=== PATIENT | male | born 1950 | race Caucasian/White ===

== ENCOUNTER 2020-01-13 14:04 | Inpatient (IN) | payer BC ==
[~2020-01-13] VITALS: Ht 167.6 cm; Wt 118.8 kg
[~2020-01-13 14:04] MED LIST: METO-539 PO
[2020-01-13] MEDS ORDERED: ONDANSETRON HCL 4MG/2ML INJ IV STA (19:01)
[2020-01-13] MEDS ORDERED: MORPHINE SULFATE 4 MG/ML CPJ (NOT FOR IM USE) IV STA (19:01)
[2020-01-13] MEDS ORDERED: PIPERACILLIN/TAZ 3.375G PREMIX 50 ML IV ONE (19:15)
[2020-01-13] MEDS ORDERED: VANCOMYCIN 1 G PREMIX 200 ML IV ONE (19:15)
[2020-01-13 19:44] LABS: BASOPHILS % 0.8 % (0.0-2.0); EOSINOPHILS % 3.3 % (0.0-5.0); HEMATOCRIT. 36.4 % (42.0-52.0); HEMOGLOBIN. 12.1 g/dL (14.0-18.0); LYMPHOCYTES % 7.1 % (20.0-50.0); MEAN CORPUSCULAR HEMOGLOBIN 29.2 pg (28.0-32.0); MEAN CORPUSCULAR VOLUME 87.5 fL (80.0-94.0); MEAN PLATELET VOLUME 7.1 fl (7.4-10.4); MONOCYTES % 8.1 % (2.0-8.0); NEUTROPHILS % 80.7 % (40.0-76.0); PLATELET 334 x1000/uL (130-400); RED BLOOD CELL COUNT 4.16 mill/uL (4.7-6.1); RED CELL DISTRIBUTION WIDTH 14.2 % (11.6-14.6)
[2020-01-13 19:51] LABS: CHLORIDE 105 mEq/L (98-107)
[2020-01-13 19:55] LABS: INR 1.1; PARTIAL THROMBOPLASTIN TIME 35.3 sec (23.4-31.0); PROTHROMBIN TIME 11.8 sec (9.6-11.0)
[2020-01-13] MEDS ORDERED: FUROSEMIDE 100MG/10ML VIAL IV STA (20:08)
[2020-01-13 20:09] LABS: COLOR URINE YELLOW (YELLOW); KETONES URINE NEGATIVE (NEGATIVE); LEUKOCYTE ESTERASE URINE NEGATIVE (NEGATIVE); NITRITE URINE NEGATIVE (NEGATIVE); OCCULT BLOOD URINE 1+ (NEGATIVE); PROTEIN URINE TRACE (NEGATIVE); SPECIFIC GRAVITY URINE 1.011 (1.005-1.030); UROBILINOGEN URINE 0.2 E.U./dL (0.2-1.0)
[2020-01-13 20:11] LABS: CLARITY URINE CLEAR (CLEAR)
[2020-01-13] MEDS ORDERED: SODIUM POLYSTYRENE SULFONATE 15 G/60 ML BOT PO ONE (20:15)
[2020-01-13] MEDS ORDERED: INSULIN REGULAR (HUMULIN R) 300UNITS/3ML IV ONE (20:15)
[2020-01-13] MEDS ORDERED: CALCIUM GLUCONATE 1,000 MG in DEXTROSE 5% WATER 50 ML IV ONE (20:15)
[2020-01-13] MEDS ORDERED: SODIUM BICARBONATE 8.4% 1 MEQ/ML 50ML SYR IV ONE (20:15)
[2020-01-13] MEDS ORDERED: ALBUTEROL (0.083%) 2.5MG/3ML NEB HHN ONE (20:15)
[2020-01-13] MEDS ORDERED: DEXTROSE 50% WATER 50ML SYRINGE IV ONE (20:15)
[2020-01-13] MEDS ORDERED: SODIUM CHLORIDE 0.9% 1,000 ML IV ONE (21:58)
[2020-01-13] MEDS ORDERED: ALBUTEROL (0.083%) 2.5MG/3ML NEB HHN NR (22:15)
[2020-01-13] MEDS ORDERED: ACETAMINOPHEN 325MG TABLET PO PRN (23:15)
[2020-01-13] MEDS ORDERED: PIPERACILLIN/TAZ 3.375G PREMIX 50 ML IV SCH (23:15)
[2020-01-13] MEDS ORDERED: DOCUSATE SODIUM 100MG CAPSULE PO PRN (23:15)
[2020-01-13] MEDS ORDERED: SODIUM POLYSTYRENE SULFONATE 15 G/60 ML BOT PO NR (23:15)
[2020-01-13] MEDS ORDERED: CLONIDINE 0.1MG TABLET PO PRN (23:15)
[2020-01-13] MEDS ORDERED: FAMOTIDINE 20MG TABLET PO NR (23:15)
[2020-01-13] MEDS ORDERED: ONDANSETRON HCL 4MG/2ML INJ IV PRN (23:15)
[2020-01-14] MEDS: SODIUM CHLORIDE 0.9% 1,000 ML IV SCH ×2 (00:47→18:49)
[2020-01-14 05:01] LABS: HEMATOCRIT. 33.5 % (42.0-52.0); HEMOGLOBIN. 11.3 g/dL (14.0-18.0); MEAN CORPUSCULAR HEMOGLOBIN 29.5 pg (28.0-32.0); MEAN CORPUSCULAR VOLUME 87.8 fL (80.0-94.0); MEAN PLATELET VOLUME 6.9 fl (7.4-10.4); PLATELET 283 x1000/uL (130-400); RED BLOOD CELL COUNT 3.82 mill/uL (4.7-6.1); RED CELL DISTRIBUTION WIDTH 14.1 % (11.6-14.6)
[2020-01-14 05:03] LABS: CHLORIDE 107 mEq/L (98-107)
[2020-01-14 05:16] LABS: PHOSPHORUS 8.1 mg/dL (2.5-4.9)
[2020-01-14] MEDS ORDERED: SODIUM POLYSTYRENE SULFONATE 15 G/60 ML BOT PO NR (06:00)
[2020-01-14] MEDS: PIPERACILLIN/TAZOBACTAM 2.25 G in DEXTROSE 5% WATER 50 ML IV SCH ×3 (06:00→23:28)
[2020-01-14 07:47] LABS: PLATELET ESTIMATE NORMAL
[2020-01-14] MEDS: PRAMIPEXOLE DI-HCL 0.25MG TABLET PO SCH ×3 (08:00→23:30)
[2020-01-14] MEDS ORDERED: MANNITOL 12.5G (25%) VIAL 50ML IV SCH (08:00)
[2020-01-14] MEDS ORDERED: AMIODARONE HCL 200 MG TABLET PO SCH (09:00)
[2020-01-14] MEDS: ENOXAPARIN 30MG/0.3ML SYR SUBCUT SCH (09:00)
[2020-01-14] MEDS ORDERED: TAMSULOSIN HCL 0.4MG SR CAPSULE PO SCH (09:00)
[2020-01-14] MEDS ORDERED: FINASTERIDE 5MG TABLET PO SCH (09:00)
[2020-01-14] MEDS ORDERED: METOPROLOL TARTRATE 50MG TABLET PO SCH (09:00)
[2020-01-14] MEDS ORDERED: LIDOCAINE HCL 1% 20ML VIAL (Pyxis) INJ ONE ×2 (10:10→11:16)
[2020-01-14] MEDS ORDERED: HEPARIN 1000 UNITS/ML 10ML ONE ×2 (10:11→11:36)
[2020-01-14] MEDS ORDERED: SODIUM BICARBONATE 4% (2.4MEQ) 5ML VIAL IV ONE (11:14)
[2020-01-14 11:49] VITALS: BP 137/60
[2020-01-14] MEDS: FOLIC ACID/VITAMIN B COMP W-C TABLET PO SCH (12:00)
[2020-01-14] MEDS ORDERED: DEXTROSE 50% WATER 50ML SYRINGE IV PRN (15:00)
[2020-01-14] MEDS ORDERED: IPRATROPIUM/ALBUTEROL 0.5-3(2.5)MG/3ML NEB HHN PRN (15:45)
[2020-01-14] MEDS ORDERED: LORAZEPAM 2MG/ML CPJ IV PRN (15:45)
[2020-01-14] MEDS ORDERED: DIPHENHYDRAMINE 50MG/ML VIAL IV PRN (15:45)
[2020-01-14] MEDS ORDERED: LACTULOSE 20G/30ML UDC PO PRN (15:45)
[2020-01-14] MEDS ORDERED: BISACODYL 10MG SUPP PR PRN (15:45)
[2020-01-14] MEDS ORDERED: MORPHINE SULFATE 2 MG/ML CPJ (NOT FOR IM USE) IV PRN (15:45)
[2020-01-14] MEDS ORDERED: HYDRALAZINE 20MG/ML VIAL IV PRN (15:45)
[2020-01-14 16:00] VITALS: BP 104/42
[2020-01-14 16:42] LABS: CREATINE KINASE 124 IU/L (39-308)
[2020-01-14 16:53] LABS: HEPATITIS B SURFACE AB < 3.1 mIU/mL
[2020-01-14 17:04] LABS: HEPATITIS B SURFACE ANTIGEN NEGATIVE
[2020-01-14] MEDS: BLOOD SUGAR DIAGNOSTIC STRIP TEST SCH ×2 (17:10→20:13)
[2020-01-14 17:33] LABS: HEPATITIS A AB IGM NEGATIVE (NEGATIVE)
[2020-01-14] MEDS: INSULIN LISPRO 100 UNITS/ML SUBCUT SCH ×2 (17:40→20:48)
[2020-01-14 20:00] VITALS: BP 127/56
[2020-01-14] MEDS ORDERED: VANCOMYCIN 750 MG PREMIX 150 ML IV SCH (20:00)
[2020-01-14] MEDS: ATORVASTATIN CALCIUM 10MG TABLET PO SCH (20:27)
[2020-01-14] MEDS: METOPROLOL TARTRATE 100MG TABLET PO SCH (20:28)
[2020-01-15] VITALS: BP 130/80
[2020-01-15 04:00] VITALS: BP 127/60
[2020-01-15] MEDS: INSULIN LISPRO 100 UNITS/ML SUBCUT SCH ×4 (05:59→21:22)
[2020-01-15] MEDS: BLOOD SUGAR DIAGNOSTIC STRIP TEST SCH ×4 (05:59→21:16)
[2020-01-15] MEDS: PRAMIPEXOLE DI-HCL 0.25MG TABLET PO SCH ×3 (06:00→21:22)
[2020-01-15 08:00] VITALS: BP 130/67
[2020-01-15 08:36] LABS: BASOPHILS % 0.6 % (0.0-2.0); EOSINOPHILS % 2.7 % (0.0-5.0); HEMATOCRIT. 30.6 % (42.0-52.0); HEMOGLOBIN. 10.2 g/dL (14.0-18.0); LYMPHOCYTES % 7.6 % (20.0-50.0); MEAN CORPUSCULAR HEMOGLOBIN 29.3 pg (28.0-32.0); MEAN CORPUSCULAR VOLUME 87.3 fL (80.0-94.0); MONOCYTES % 8.4 % (2.0-8.0); NEUTROPHILS % 80.7 % (40.0-76.0); PLATELET 266 x1000/uL (130-400); RED CELL DISTRIBUTION WIDTH 14.6 % (11.6-14.6)
[2020-01-15] MEDS: PIPERACILLIN/TAZOBACTAM 2.25 G in DEXTROSE 5% WATER 50 ML IV SCH ×2 (08:40→20:57)
[2020-01-15] MEDS: ENOXAPARIN 30MG/0.3ML SYR SUBCUT SCH (08:41)
[2020-01-15] MEDS: METOPROLOL TARTRATE 100MG TABLET PO SCH ×2 (08:42→20:58)
[2020-01-15] MEDS: FOLIC ACID/VITAMIN B COMP W-C TABLET PO SCH (08:42)
[2020-01-15 12:00] VITALS: BP 91/54
[2020-01-15] MEDS ORDERED: HEPARIN SODIUM 1,000 UNIT/1ML VIAL IV NR (12:15)
[2020-01-15] MEDS: CALCIUM ACETATE 667MG CAPSULE PO SCH ×2 (12:40→18:33)
[2020-01-15] MEDS ORDERED: VANCOMYCIN 750 MG PREMIX 150 ML IV SCH (14:00)
[2020-01-15 16:08] VITALS: BP 129/56
[2020-01-15] MEDS: SODIUM CHLORIDE 0.9% 1,000 ML IV SCH (16:26)
[2020-01-15] MEDS ORDERED: BISACODYL 10MG SUPP PR NR (17:00)
[2020-01-15] MEDS ORDERED: LACTULOSE 20G/30ML UDC PO NR (18:00)
[2020-01-15 20:00] VITALS: BP 141/68
[2020-01-15] MEDS: ATORVASTATIN CALCIUM 10MG TABLET PO SCH (20:58)
[2020-01-16 15:06] LABS: ANTI-NUCLEAR ANTIBODIES DIRECT Negative (Negative)
[2020-01-17 08:07] LABS: HIV SCREEN 4G Non Reactive (Non Reactive)
[2020-01-19 18:15] LABS: ANTI-MYELOPEROXIDASE AB < 9.0 U/mL (0.0-9.0); ANTI-PROTEINASE 3 ABS < 3.5 U/mL (0.0-3.5)
[2020-01-20 10:06] LABS: GLOMERULAR BASEMENT MEMB AB 3 units (0-20)
[2020-01-21 13:11] LABS: ATYPICAL P-ANCA <1:20 titer (Neg:<1:20); CYTOPLASMIC C-ANCA <1:20 titer (Neg:<1:20); PERINUCLEAR P-ANCA <1:20 titer (Neg:<1:20)
== END 2020-01-16 00:40 | disposition short-term general hospital (02) | DRG 682 ==
LOC: ER 14:04 → MICUSO 21:53 → EDBEDREQTM 21:57 → EDBEDREQ 21:57 → ENRESERV 01-14 07:39 → 8WST 01-14 08:11
PROVIDERS: ADMIT Ophthalmology; ATTEND Ophthalmology
PROC: 5A1D70Z Performance of Urinary Filtration, Intermittent, Less than 6 Hours Per Day (ICD-10-PCS; principal; 2020-01-14)
PROC: B5181ZA Fluoroscopy of Superior Vena Cava using Low Osmolar Contrast, Guidance (ICD-10-PCS; 2020-01-14)
PROC: 02HV33Z Insertion of Infusion Device into Superior Vena Cava, Percutaneous Approach (ICD-10-PCS; 2020-01-14)
PROC: B548ZZA Ultrasonography of Superior Vena Cava, Guidance (ICD-10-PCS; 2020-01-14)
PROC: 5A1D70Z Performance of Urinary Filtration, Intermittent, Less than 6 Hours Per Day (ICD-10-PCS; 2020-01-15)
DX: I12.0 Hypertensive chronic kidney disease with stage 5 chronic kidney disease or end stage renal disease (principal); N18.6 End stage renal disease; I50.43 Acute on chronic combined systolic (congestive) and diastolic (congestive) heart failure; L03.115 Cellulitis of right lower limb; N17.9 Acute kidney failure, unspecified; E87.2 Acidosis; K56.7 Ileus, unspecified; L97.909 Non-pressure chronic ulcer of unspecified part of unspecified lower leg with unspecified severity; L03.116 Cellulitis of left lower limb; E83.39 Other disorders of phosphorus metabolism; D64.9 Anemia, unspecified; E87.5 Hyperkalemia; E11.22 Type 2 diabetes mellitus with diabetic chronic kidney disease; E11.40 Type 2 diabetes mellitus with diabetic neuropathy, unspecified; E78.5 Hyperlipidemia, unspecified; G20 Parkinson's disease; I25.10 Atherosclerotic heart disease of native coronary artery without angina pectoris; E11.65 Type 2 diabetes mellitus with hyperglycemia; N40.0 Benign prostatic hyperplasia without lower urinary tract symptoms; I48.91 Unspecified atrial fibrillation; E11.51 Type 2 diabetes mellitus with diabetic peripheral angiopathy without gangrene; K21.9 Gastro-esophageal reflux disease without esophagitis; Z79.899 Other long term (current) drug therapy; Z82.0 Family history of epilepsy and other diseases of the nervous system; Z82.49 Family history of ischemic heart disease and other diseases of the circulatory system; Z85.828 Personal history of other malignant neoplasm of skin; Z99.2 Dependence on renal dialysis
CPT/HCPCS: 36415; 71045; 74018; 76770; 76937; 77001; 80048; 80053; 80202; 81003; 82550; 82962; 83036; 83520; 83605; 83880; 84100; 84132; 84145; 84153; 84484; 85025; 85651; 86038; 86256; 86431; 86705; 86706; 86709; 86803; 87340; 87389; 93005; 93970; 94644; 96365; 97162; 99291; C1752; J0610; J1644; J1650; J1815; J1940; J2150; J2270; J2405; J2543; J3370; J3490; J7030; J7060; L8514; G0103